=== PATIENT | female | born 1990 | race Two or more races ===

== ENCOUNTER 2023-07-21 14:34 | Observation (INO) | payer MEDICAID, SELFPAY ==
--- NOTE | ~2023-07-21 | US_ITS ---
EXAMINATION: US OB follow up DATE: 07/21/2023 17:06 INDICATION: growth, VICENTE, no care in the [place] . TECHNIQUE: Real-time ultrasound of the pelvis was performed. COMPARISON: None. FINDINGS: There is a single living fetus in vertex presentation. The placenta is posterior. heart rate i s 150 bpm. The amniotic fluid index is 20.7 cm, which is normal (5th to 95th percentile is 9.2 to 23. 1 cm). The following biometric data were obtained: Biparietal diameter (BPD): 7.82 cm; head circumference (HC): 27.02 cm; abdominal circumference (AC): 26.72 cm; femur length (FL): 5.69 cm. These measurements are concordant. Estimated weight is 1570 g +/- 235.57 g, which correlates with the 86.3 percentile when 10/06/19 24 is used as estimated date of delivery. As single measurements, these parameters are each equal to the following estimated gestational ages w ith ranges of +/- 2 standard deviations: BPD: 31 weeks 3 days +/- 3 weeks 1 days. HC: 29 weeks 3 days +/- 2 weeks 0 days. AC: 30 weeks 6 days +/- 3 weeks 0 days. FL: 29 weeks 6 days +/- 2 weeks 1 days. estimated gestational age based solely on measurements from this exam is 30 weeks 3 days +/- 2 weeks 1 days. IMPRESSION: Single living fetus in vertex presentation. GREG by ultrasound 09/26/2023. Normal VICENTE. biometrics detailed above. Reviewed, dictated and finalized at location K.
[2023-07-21 15:11] VITALS: BP 103/58; PULSE 87
[2023-07-21 16:12] LABS: Appearance Urine Clear (Clear); Bacteria Urine None Seen /hpf; Bilirubin Urine Negative (Negative); Blood Urine Negative (Negative); Color Urine Yellow (Yellow); Glucose Urine UA Negative (Negative); Ketones Urine Negative (Negative); Leukocyte Esterase Ur Trace LEU/UL (Negative); Need Manual Microscopic Reviewed; Nitrate Urine Negative (Negative); Non Pathogenic Casts 0-2; Protein Urine Negative (Negative); RBC Urine 0-2 /hpf (0-2); Specific Grav Ur 1.003 (1.001-1.035); Squamous Epithelial Cell Urine Occasional /hpf (Few); Urobilinogen Urine 0.2 mg/dL (<2.0); WBC Urine 0-5 /hpf; pH Urine 7.5 (5.0-9.0)
[2023-07-21 16:46] LABS: Add Urine Microscopic? YES
--- NOTE | 2023-07-21 17:32 | OBADM ---
This patient, Bassem Gold, admitted to the OB room OB Post [facility] for observation. Patient/family oriented to hospital policies and general routines including ID bracelet, bed and alarms, visiting hours, pain management, procedures, bathroom and other care routines, personal items, smoking policy, room service/diet, and visiting hours. Patient/Family are encouraged to report perceived risks to care and to ask questions if they do not understand what they are told or what they should do.
--- NOTE | 2023-07-22 09:29 | P.PNOB_ITS ---
OB - Triage/Final Diagnosis Visit Information Comments/Additional reasons for admission: I have assessed the risk for this patient, Bassem Gold, and determined that she would benefit from observation care. Evaluation Laboratory results: Laboratory Tests 07/21/23 15:32 Urine Color Yellow Urine Appearance Clear Urine pH 7.5 Ur Specific [place] 1.003 Urine Protein Negative Urine Glucose (UA) Negative Urine Ketones Negative Ur Blood (Man) Negative Urine Nitrate Negative Urine Bilirubin Negative Urine Urobilinogen 0.2 Add Ur Microanalysis Reviewed Leukocyte Esterase Rfl Trace H Urine RBC 0-2 Urine WBC 0-5 Ur Squamous Epith Cells Occasional Urine Bacteria None seen Urine Casts 0-2 Vital signs: Vital Signs - 24 hr 07/21/23 15:11 Pulse Rate 87 Blood Pressure 103/58 L Final Diagnosis (1) Abdominal pain affecting : Code(s): O26.899 - Other specified related conditions, unspecified trimester; R10.9 - Unspecified abdominal pain Status: Acute
== END 2023-07-21 17:20 | disposition home or self-care (01) ==
PROVIDERS: Admitting Provider Obstetrics & Gynecology; Visit Provider Obstetrics & Gynecology
DX: O26.893 Other specified pregnancy related conditions, third trimester (principal); R10.9 Unspecified abdominal pain; Z3A.29 29 weeks gestation of pregnancy
CPT/HCPCS: 76816; 81001; G0378; G0379

== ENCOUNTER 2023-09-11 12:30 | Outpatient (RCR) | payer MEDICAID, OTHER, SELFPAY ==
--- NOTE | 2023-08-14 16:39 | OPREHPOC ---
Outpatient Therapy Plan of Care This is a Multidisciplinary Plan of Care that may contain components documented by all disciplines (PT, OT, and ST.) PT Problem 1 PT Problem #1 Knowledge Deficit PT Goal 1 Goal *indep with HEP PT Problem 2 PT Problem #2 Pain PT Goal 1 Goal 1* pt report pain rating of 4/10 at worst 2* no pain reported with palpation over R proximal hip adduction muscle group PT Problem 3 PT Problem #3 Impaired Functional Mobil PT Goal 1 Goal 1* pt ambulate 150' without limping on R LE 2* pt transfer supine/sit without an increase in pain reported 3* increase hip and pelvic strength for good positioning of low back
--- NOTE | 2023-08-14 16:39 | PTOPEVAL1 ---
Assessment and note entered by Kaya Nix, PT Evaluation Information Assessment Status Evaluation Diagnosis sciatica and R side pain Onset 4 weeks ago Subjective Information severe pain with turning in bed, getting up and stepping on R leg; is and due date is October 05 Activity: does not work outside of the home; home tasks increase her pain; is home with and 6 & 1/2 yr old daughter; Reported Pain Level Pain Score Self Report Additional Pain Score Comments pain range in the past week: 4-8/10; most pain anterior R hip pain; also R lateral hip; pops sometimes; increase pain: rolling over in bed, getting up out of bed and stepping onto R leg; first few steps hurt with walking, then get better in hip decrease pain: sit with hip ER; is not taking any medicine; have not used heat or ice Assessment PT Clinical Summary Bassem has the diagnosis of sciatica and R radicular pain. She is 8 months , due October 05. Her is supportive and assist with interpreting with pt. With the evaluation: her pain and tenderness is over hip adductors with spasms at proximal groin area and pain is decreased with sitting hip ER. There is not any tightness of the hip. Skilled PT services are indicated for manual therapy and modalities to decrease pain and spasms therapeutic exercises to strengthen hips and education for home exercises and pain management. Plan of Care Interventions Hot Pack/Cold Pack,Manual Therapy,Neuro Re- education,Patient/Caregiver Education,Therapeutic Activities,Therapeutic Exercise,Self-Care/Home Management PT Services Indicated Yes Treatment Frequency and 1-2 x/wk for 7 total visits Duration These treatments will address the objective and functional deficits as defined above. The patient will be advanced safely and appropriately in order for the dahiana
--- NOTE | 2023-09-18 16:33 | PCPTNOTE ---
pt did not show for today's treatment session.
--- NOTE | 2023-09-22 13:01 | PTOPDC ---
Assessment and note entered by Kaya Nix, PT Discharge Information Assessment Status Discharge - Pt Not Present Diagnosis sciatica and R side pain Onset 4 weeks ago Assessment PT Clinical Summary Mrs. Gold has received 5 PT sessions and she did not show for 2 appointments- 1 treatment and the reevaluation. Talked with her on the phone today and informed him that she would be discharged from PT at this time. The goals were not addressed. Her baby is due in 2 weeks. Discharge PT services. Plan of Care PT Services Indicated No
== END 2023-09-22 13:46 | disposition home or self-care (01) ==
LOC: ANHPT 12:30
PROVIDERS: Visit Provider Obstetrics & Gynecology
DX: M54.31 Sciatica, right side (principal)
CPT/HCPCS: 97110; 97140; 97161; 97530; 99199

== ENCOUNTER 2023-09-27 16:10 | Inpatient (IN) | payer OTHER, SELFPAY ==
[2023-09-27] VITALS (18 sets, daily range): BP systolic 95–134; BP diastolic 49–101; PULSE 70–104; TEMP 36.9–37.1; BMI 33.8
--- NOTE | 2023-09-27 17:04 | LDADM ---
This patient, Bassem Gold, was admitted to Labor/Delivery/Recovery 103 on 09/27/23 at 16:10. Plans for labor, pain management and were discussed with patient. Patient/family oriented to hospital policies and general routines including ID bracelet, bed and alarms, visiting hours, pain management, procedures, bathroom and other care routines, personal items, smoking policy, room service/diet and guest tray routines, security routines, and visiting hours. Patient/Family are encouraged to report perceived risks to care and to ask questions if they do not understand what they are told or what they should do. See OBIX for further documentation.
[2023-09-27 17:06] LABS: Basophils Percent Auto 0.5 % (0.2-1.2); Eosinophils Absolute Auto 0.2 K/mm3 (0-0.3); Eosinophils Percent Auto 2.2 % (0-4.4); Hematocrit 33.3 % (37.0-47.0); Hemoglobin 11.3 g/dL (12.0-15.0); Immature Granulocyte Absolute 0.05 K/mm3 (0.00-0.031); Immature Granulocyte Percent A 0.6 % (0-0.5); Lymphocytes Absolute Auto 1.62 K/mm3 (0.9-3.2); Lymphocytes Percent Auto 19.6 % (18.3-44.2); Mean Corpuscular HGB Conc 33.9 g/dl (32-36); Mean Corpuscular Volume 85.6 fl (80-100); Mean Platelet Volume 9.7 fl (7.4-10.4); Monocytes Absolute Auto 0.5 K/mm3 (0.1-0.6); Monocytes Percent Auto 6.1 % (2.6-8.5); Neutrophils Absolute Auto 5.9 K/mm3 (1.3-6.7); Platelet Count Result 352 k/mm3 (150-375); Red Blood Count 3.89 M/mm3 (4.2-5.4); Red Cell Distribution Width 15.1 % (11.5-14.5); White Blood Count 8.3 K/mm3 (4.5-10.0)
[2023-09-27 18:02] LABS: HIV 1/2 Ab P24 Ag Result Negative (Negative)
[2023-09-27] MEDS: DINOPROSTONE 10 MG VAG INSERT VAGINAL (18:09)
[2023-09-28] VITALS (275 sets, daily range): BP systolic 75–210; BP diastolic 27–192; PULSE 56–171; TEMP 36.6–37.2; O2SAT 97–100
[2023-09-28] MEDS: LACTATED RINGERS 1,000 ML 125 ML IV CONT ×4 (01:22→18:05)
--- NOTE | 2023-09-28 07:14 | WPDANESEPP ---
Anes - Eval Pre Procedure Procedure: labor epidural Date/Time: 09/28/23 07:14 Surgeon: donna Preop Diagnosis: pain during labor Pre Op Diagnosis: IOL Patient Data Age: 32 Gender: F Height: 1.57 m Weight: 84 kg Last Vital Signs Temp 37.1 C 09/28/23 06:49 Pulse 76 09/28/23 07:01 BP 105/47 L 09/28/23 07:01 Pulse Ox 99 09/28/23 07:12 O2 Del Method Room Air 09/27/23 17:04 Allergies Allergy/AdvReac Type Severity Reaction Status Date / Time No Known Allergies Allergy Verified 09/27/23 17:25 Home Medications Medication Instructions Recorded Confirmed Type ferrous sulfate 325 mg (65 mg 325 mg PO DAILY #30 tabs 08/21/23 09/23/23 Rx iron) tablet vits no.126-ferrous fum 1 tablet PO DAILY 30 days #30 tabs 08/21/23 09/23/23 Rx 28 mg iron-folic acid 800 mcg tablet (Classic ) cholecalciferol (vitamin D3) 50 50 mcg PO DAILY 09/12/23 09/23/23 History mcg (2,000 unit) tablet (Vitamin D3) hydrocortisone 2.5 % topical cream 1 applic topical BID PRN itching 09/25/23 09/27/23 Rx #30 grams Laboratory Tests 09/27/23 16:42 WBC 8.3 K/mm3 (4.5-10.0) RBC 3.89 L M/mm3 (4.2-5.4) Hgb 11.3 L g/dL (12.0-15.0) Hct 33.3 L % (37.0-47.0) MCV 85.6 fl (80-100) MCH 29.0 pg (26-34) MCHC 33.9 g/dl (32-36) RDW 15.1 H % (11.5-14.5) Plt Count 352 k/mm3 (150-375) MPV 9.7 fl (7.4-10.4) Immature Gran % (Auto) 0.6 H % (0-0.5) Neut % (Auto) 71.0 % (45.5-73.1) Lymph % (Auto) 19.6 % (18.3-44.2) Drew % (Auto) 6.1 % (2.6-8.5) Eos % (Auto) 2.2 % (0-4.4) Baso % (Auto) 0.5 % (0.2-1.2) Lymph # (Auto) 1.62 K/mm3 (0.9-3.2) Drew # (Auto) 0.5 K/mm3 (0.1-0.6) Eos # (Auto) 0.2 K/mm3 (0-0.3) Baso # (Auto) 0.0 K/mm3 (0.0-0.1) Abs Immat Gran (auto) 0.05 H K/mm3 (0.00-0.031) Absolute Neuts (auto) 5.9 K/mm3 (1.3-6.7) Absolute Nucleated RBC 0.000 K/mm3 (0.0-0.012) Nucleated RBC % 0.0 % (0.0-0.2) RPR Pending HIV 1&2 Ab/P24 Ag 4thGn Negative (Negative) Blood Type O Positive Antibody Screen Negative Patient hx anesthesia problems: none Family hx anesthesia problems: none Results Review: All pre-operative results and documents have been reviewed as part of the pre-operative evaluation. [facility] Past Medical History Medical History (Updated 09/28/23 @ 07:15 by Zoila Carrizales CRNA) Family History Family History (Updated 09/12/23 @ 12:31 by Taryn Iqbal RN) Other No pertinent family history Social History Social History Smoking status: Never smoker Second hand tobacco smoke exposure: No Alcohol intake: never Substance use: never Substance use type: does not use Do You Feel Safe in your Home?: Yes Lack of Transportation: YES Lack of Food: Sometimes True Current Housing: I Do Not Have Housing Concerned About Future Housing: No Difficulty Paying Gas/Electric Bills: No Difficulty Paying for Meds: No Currently Unemployed: No Education: Bachelor's Degree Difficulty w/ Childcare or Family Care: No Living arrangements: other Additional living arrangements comments: Occupation/Education: other 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
--- NOTE | 2023-09-28 07:58 | PM.IMHP ---
H&P: HPI History of Present Illness Date/Time: 09/28/23 07:58 Chief Complaint: induction of labor Narrative: Sunny is a 32yo G2 P 1001 @ 40.1wks who presented overnight for induction of labor, s/p cervidil. She reports good movement. She is feeling contractions. No VB or LOF. Her is complicated by: -- late transfer (31 week) -- R groin pain...PT/tylenol -- elevated 1 hour; 3 hour normal -- anemia; iron daily Review of Systems Constitutional: Constitutional: Denies chills, Denies fever(s) and Denies headache(s) Eyes: Eyes: Denies change in vision ENT: Denies headache(s) Cardiovascular: Cardiovascular: Denies chest pain and Denies dyspnea Respiratory: Respiratory: Denies dyspnea Genitourinary: Genitourinary: Denies abnormal vaginal bleeding and Denies vaginal discharge Neurologic: Denies headache(s) Psychiatric: Psychiatric: Denies anxiety and Denies depression [facility] Past Medical History Medical History Family History Family History (Updated 09/12/23 @ 12:31 by Taryn Iqbal RN) Other No pertinent family history Social History Social History Smoking status: Never smoker Second hand tobacco smoke exposure: No Alcohol intake: never Substance use: never Substance use type: does not use Do You Feel Safe in your Home?: Yes Lack of Transportation: YES Lack of Food: Sometimes True Current Housing: I Do Not Have Housing Concerned About Future Housing: No Difficulty Paying Gas/Electric Bills: No Difficulty Paying for Meds: No Currently Unemployed: No Education: Bachelor's Degree Difficulty w/ Childcare or Family Care: No Living arrangements: other Additional living arrangements comments: Occupation/Education: other 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 Gender identity (if verbalized by the patient): Female Sexual Orientation (if Verbalized by the Patient): Straight or Heterosexual Spiritual care concerns: No Meds Home Medications and Allergies Home Medications Medication Instructions Recorded Confirmed Type ferrous sulfate 325 mg (65 mg 325 mg PO DAILY #30 tabs 08/21/23 09/23/23 Rx iron) tablet vits no.126-ferrous fum 1 tablet PO DAILY 30 days #30 tabs 08/21/23 09/23/23 Rx 28 mg iron-folic acid 800 mcg tablet (Classic ) cholecalciferol (vitamin D3) 50 50 mcg PO DAILY 09/12/23 09/23/23 History mcg (2,000 unit) tablet (Vitamin D3) hydrocortisone 2.5 % topical cream 1 applic topical BID PRN itching 09/25/23 09/27/23 Rx #30 grams Allergies Allergy/AdvReac Type Severity Reaction Status Date / Time No Known Allergies Allergy Verified 09/27/23 17:25 Vital Signs Vital Signs - 24 hr 09/27/23 16:50 09/27/23 17:00 09/27/23 17:15 Temperature Pulse Rate 104 H 95 92 Blood Pressure 119/70 119/67 119/72 Pulse Oximetry Oxygen Delivery 09/27/23 17:30 09/27/23 16:20 09/27/23 18:30 Temperature 98.6 F 98.5 F Pulse Rate 88 Blood Pressure 115/76 Pulse Oximetry Oxygen Delivery 09/27/23 20:26 09/27/23 20:30 09/27/23 21:05 Temperature 98.7 F Pulse Rate 70 93 Blood Pressure 109/50 L 112/49 L Pulse Oximetry Oxygen Delivery 09/27/23 21:07 09/27/23 21:17 09/27/23 21:48 Temperature Pulse Rate 93 91 100 Blood Pressure 114/60 134/101 H 121/72 Pulse Oximetry Oxygen Delivery 09/27/23 22:00 09/27/23 22:15 09/27/23 22:30 Temperature 98.8 F Pulse Rate 91 91 93 Blood Pressure 123/72 121/75 95/52 L Pulse Oximetry Oxygen Delivery 09/27/23 22:45 09/27/23 23:01 09/27/23 23:30 Temperature Pulse Rate 99 103 H 83 Blood Pressure 115/79 104/57 L 123/58 L Pulse Oximetry Oxygen Delivery 09/28/23 00:01 09/28/23 00:31 09/28/23 01:01 Temperature Pulse Rate 79 87 76 Bloo
[2023-09-28] MEDS: OXYTOCIN 30 UNITS/NS 500 ML 30 UNITS/500 ML BAG IV CONT (09:00)
[2023-09-28] MEDS: diphenhydrAMINE HCl CAP 25 MG CAPSULE PO (09:28)
--- NOTE | 2023-09-28 12:08 | PM.OBPNLAB ---
Pain Control Date/time seen: 09/28/23 12:08 Pain control: epidural Pelvic Exam Dilation (cm): 2 Effacement (%): 60 station: -2 Amniotic membrane status: Intact Contractions Monitor mode: External Contraction frequency: 3 Contraction pattern: Regular Status status: Category l Assessment and Plan Pitocin rate (mU/min): 6 Assessment: induction ongoing Comments: Cook balloon with 70cc in each balloon placed Continue pitocin
--- NOTE | 2023-09-28 20:00 | PM.OBPNLAB ---
Pain Control Date/time seen: 09/28/23 20:00 Pain control: epidural Pelvic Exam Dilation (cm): 8 Effacement (%): 80 station: -3 Amniotic membrane status: Ruptured (rut GARCIA 1955) Contractions Monitor mode: External Contraction frequency: 2 Contraction pattern: Regular Status status: Category ll Comments: 2 variables noted after AROM Assessment and Plan Pitocin rate (mU/min): 14 Assessment: active labor Plan: continuous present management
[2023-09-28] MEDS: LIDOCAINE HCL 1% LOCAL INJ 20 ML VIAL (22:30)
[2023-09-28] MEDS: OXYTOCIN 30 UNITS/NS 500 ML 30 UNITS/500 ML BAG 125 UNITS IV CONT (22:54)
--- NOTE | 2023-09-28 23:13 | PM.OBPRVD ---
OB - Vaginal Delivery Note Procedure Delivery date: 09/28/23 Events: Elective Induction of Labor Induction method: Per Cervidil Protocol and Other (Cook Balloon) Delivery augmentation: Rupture of Membranes, Pitocin and Other Delivery monitor: External FHT and External Uterine Route of delivery: Laceration Description: Perineal - 3rd Degree Delivery repair: vicryl Specimen: Yes (placenta) Quantitative Blood Loss (ml): 400 Anesthesia type: Epidural (and 20cc of 1% lidocaine w/o epi) Disposition: Floor Complications: No immediate complications [place] Baby Date of : 09/28/23 Time of : 22:22 Weeks of gestation at delivery: 40 (.1) Infant gender: Female presentation: vertex Placenta delivery description: Expressed Cord Vessel Description: 3 Vessels, True Knot and Delayed Cord Clamping score one minute: 8 score five minutes: 9 Narrative: Nona rapidly progressed to complete dilation and had significant descensus of the fetus. She was in pain as her epidural was not providing adequate anesthesia. Her and her began arguing in their [place] language. He became upset and then started yelling at the staff. Security was notified and present. She was pushing ineffectively on her own, while yelling/screaming. Once I arrived to the room, she was found to be +2 station and I had a conversation with the and he apologized and calmed down. We then educated Nona on the correct way to push. She pushed for three additional contractions and delivered the head over intact perineum. No nuchal cord was noted. She easily delivered the 's shoulders and body without complication. The was immediately placed skin to skin and she had spontaneous cry. The mouth and nose were bulb suction. Delayed cord clamping was performed. The umbilical cord was then doubly clamped and cut. A segment of the cord was collected for cord gases. A true knot was noted. The remaining cord blood was collected for typing. With Pitocin running and gentle downward traction on the cord, the placenta delivered without complications. She was examined and a third degree perineal laceration was noted. The laceration was anesthetized using 20cc of 1% lidocaine w/o epi. The rectal sphincter was reapproximated with multiple 2-0 Vicryl stitches incorporating the surrounding fascia. The remaining laceration was repaired in the normal fashion as a second degree using 2-0 Vicryl. The laceration was approximated well and good hemostasis was noted. Her uterus was found to be firm with minimal bleeding. Sponge, lap, instrument, and needle counts were correct at the of the procedure. Mom and baby were left bonding in the birthing suite in stable condition. She will receive Ancef 2g IV once and be started on stool softeners.
[2023-09-28] MEDS: ceFAZolin 2 GM/D5W 50 ML 2 GM/50 ML BAG IVPB (23:17)
[2023-09-29] VITALS (8 sets, daily range): BP systolic 87–123; BP diastolic 50–76; PULSE 64–84; RESP 16–18; TEMP 36.6–37.4; O2SAT 96–100
[2023-09-29] MEDS: WITCH HAZEL 40 PADS 1 PAD TOPICAL (01:27)
[2023-09-29] MEDS: BENZOCAINE 20% AER SPR (*SP) 56 GM CAN 1 SPRAY TOPICAL (01:27)
[2023-09-29] MEDS: ACETAMINOPHEN 325 MG TABLET 650 MG PO ×3 (02:41→16:52)
[2023-09-29] MEDS: IBUPROFEN 600 MG TABLET PO ×3 (02:41→10:26)
[2023-09-29 05:17] LABS: Hematocrit 29.6 % (37.0-47.0); Hemoglobin 9.8 g/dL (12.0-15.0)
--- NOTE | 2023-09-29 06:46 | PM.OBPNVD ---
OB - PN: Subj Subjective Date/time seen: 09/29/23 06:46 Narrative: PPD#1 Nona reports doing well today. 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 Her pain is controlled. She is tolerating regular diet, voiding, passing gas, and ambulating without issues. She is breast feeding. OB - PN: Obj Data Labs 09/29/23 05:08 Labs: Laboratory Results - last 24 hr 09/29/23 05:08 Hgb 9.8 L Hct 29.6 L OB - PN A/P Assessment and Plan (1) Normal vaginal delivery of second : Code(s): O80 - Encounter for full-term uncomplicated delivery Status: Acute (2) Third degree perineal laceration during delivery: Code(s): O70.20 - Third degree perineal laceration during delivery, unspecified Status: Acute Plan day: 1 Plan: routine care Comments: - PO pain meds - Regular diet - Ambulation and hydration encouraged - Continue putting baby to breast q2-3hr - stool softeners Time Spent With Patient Time: Total time spent is greater than 50% in coordination of care (as documented) at patient's floor/unit and/or counseling patient: Review of Systems Constitutional: Constitutional: Denies chills, Denies fever(s) and Denies headache(s) Eyes: Eyes: Denies change in vision ENT: Denies dizziness and Denies headache(s) Cardiovascular: Cardiovascular: Denies chest pain, Denies palpitations and Denies dyspnea Respiratory: Respiratory: Denies cough and Denies dyspnea Gastrointestinal: Gastrointestinal: Denies nausea and Denies vomiting Neurologic: Denies dizziness and Denies headache(s) Endocrine: Endocrine: Denies palpitations Exam Const: General: cooperative, comfortable and no acute distress Orientation/consciousness: patient oriented x3 Resp: Effort & Inspection: normal respiratory effort Auscultation: clear to auscultation bilaterally Cardio: Rate: regular rate GI: Inspection: non-distended GI Palp: No abdominal tenderness and Yes Soft to palpation Auscultation: normal bowel sounds : Other: fundus firm Skin: General skin exam: normal color Neuro: General: patient oriented x3 Extrem: General: normal to inspection Psych: Appearance: grossly normal Affect: normal affect Attitude: cooperative
[2023-09-29] MEDS: POLYSACCHARIDE IRON COMPLEX 150 MG CAPSULE PO ×2 (10:25→16:53)
[2023-09-29] MEDS: MULTIVIT/MIN/PREN/FOL AC/IRON TABLET 1 TAB PO (10:25)
[2023-09-29] MEDS: DOCUSATE SODIUM 100 MG CAPSULE PO ×2 (10:25→16:53)
--- NOTE | 2023-09-29 11:06 | WPDANLDPN2 ---
Anes-Prog Note L&D Date/Time: 09/29/23 11:06 Comfortable throughout: labor and delivery Neuraxial method: epidural Epidural/Spinal procedure site: tender (pt reports severe pain. Told spouse to continue Tylenol and speak with PCP for further prescriptions) Neuro status: Neuro function grossly intact. Cardiovascular status: normal Respiratory status: normal Airway patency: baseline Mental status: baseline Post-Op hydration status: normal Vital Signs: Last Vital Signs Temp 99.3 F 09/29/23 07:50 Pulse 68 09/29/23 07:50 Resp 16 09/29/23 07:50 BP 105/50 L 09/29/23 07:50 Pulse Ox 100 09/29/23 07:50 O2 Del Method Room Air 09/27/23 17:04 Pain score (VAS): 0/10 I/O: Intake & Output 09/28/23 09/29/23 09/29/23 23:59 07:59 15:59 Intake Total 1000 800 Output Total 400 660 Balance 600 140 Post-procedural complaints: none Patient feedback: Patient satisfied with anesthetic care.
--- NOTE | 2023-09-29 11:45 | PCCCNOTE ---
Per Care Coordination. Patient referred to CC for homeless and possible resources. American is not their primary language, but dad is fluent American as well. Met with FOB at bedside. Mother was talking through bathroom and getting ready for shower. Pt. and FOB live with a friend. They deny homelessness. Pt. does not have SSN, so not able to get benefits per FOB. He reports able to use his insurance to get rides for appointments. They also utilize the bus or delivery services. FOB reports having all necessary baby car items like carseat and bassinet. He will see with financial counselor if baby can get WIC services. Provided them with a basket of baby care items as well. Hospital will send them home with some formula too and father reports they will also buy formula, but mother is also breast feeding. No further needs identified.
--- NOTE | 2023-09-29 12:40 | PC.NURSE ---
[id number] Introductions were made, then consulted with patient to assess needs related to and father of baby assists with interpreting at times. Stratus for interpretation was declined by mother. Mother was concerned about her flat nipples, however; she demonstrated latching her independently. Encouraged understanding of the benefits of skin to skin (demonstrating unwrapping infant and placing upright on her chest), stimulating with massage touch, changing positions to encourage wakefulness, how to watch for early feeding cues, responsive feeding, feeding on demand (aiming for 8-12 times in 24 hours, about every 2-3 hours), milk production, building/maintaining a milk supply, duration of feeding, signs of adequate intake/output and how to record on the feeding sheet. Mother works well with her . Reviewed positioning and ear, shoulder, hip alignment, supporting the breast to facilitate a deep latch, asymmetrical latch (off-center), leading with the chin with a big, open, wide gape and body close to mother. Infant latched optimally to the right breast in cross cradle position. Education given to the mother of how to visualize the suckling (with good rocking jaw motion), swallows (dropping of the lower jaw) and how to listen for drinking at the breast (the ka sound). was able to maintain latch without pain to mother protecting the nipple with optimal positioning and latching. Reviewed comfort measures of healing with a warm, wet washcloth to rinse breast, then leave open to air-dry, good handwashing when or touching the breast/nipples to prevent infection. Infant self detached with hands relaxed and no misshaping of mother's nipple. She rates her nipple tenderness a 3 on 0-10 pain scale. Mother voiced understanding of skin to skin, stimulating with massage touch, responsive feedings, talking to to encourage if it has been 2 -2.5 hours since the start of the last , to call if infant does not latch, or if there is discomfort with . Resources used for education were facilitated with the visual educational handouts/ tool/mom and baby guide. Inpatient/outpatient resources provided with feeding sheet, name written on the communication board, and the mom/baby guide. Parents voiced understanding of information, demonstrated learning and will call if there is a request for assistance.
[2023-09-29 14:35] LABS: Rapid Plasma Reagin Non-Reactive (NonReactive)
--- NOTE | 2023-09-30 06:36 | PM.OBDSVD ---
DS: Admitting Diagnosis Discharge Date 09/30/23 Admitting Diagnosis Induction of labor DS: Discharge Diagnosis Discharge Diagnosis (1) Normal vaginal delivery of second : Code(s): O80 - Encounter for full-term uncomplicated delivery Status: Acute (2) Third degree perineal laceration during delivery: Code(s): O70.20 - Third degree perineal laceration during delivery, unspecified Status: Acute OB - DS: Summary OB Procedures : Ultrasound OB Procedures Intrapartum: Spontaneous Vag Delivery OB Procedures: : None Peripartum Data Infant Delivery Method: Natural Vaginal Laceration Description: Perineal - 3rd Degree complications: none 1: Gender: Female Disposition of : home Status at Discharge Functional status at discharge: independent ambulation Overall status at discharge: patient is back to baseline Time Spent with Patient Time attestation: Total time spent providing and/or coordinating discharge services: Exam Const: General: cooperative, comfortable and no acute distress Orientation/consciousness: patient oriented x3 Resp: Effort & Inspection: normal respiratory effort Auscultation: clear to auscultation bilaterally Cardio: Rate: regular rate GI: Inspection: non-distended GI Palp: No abdominal tenderness and Yes Soft to palpation Auscultation: normal bowel sounds : Other: fundus firm Skin: General skin exam: normal color Neuro: General: patient oriented x3 Extrem: General: normal to inspection Psych: Appearance: grossly normal Affect: normal affect Attitude: cooperative DS: Data Data Completed and Pending Pending studies at discharge: Pending at discharge 09/28/23 22:27 Surgical [PTH] Routine Labs on day of discharge: Labs from last 24 hours 09/27/23 16:42 RPR Non-reactive Discharge Plan Discharge Attending physician on discharge: Mi Rico Discharging Clinician: Mi Rioc Anticipated Discharge Date/Time: 09/30/23 14:00 Patient Disposition: Home, Self-Care Activity: may shower and pelvic rest Diet: regular Patient Instructions: Perineal Tear with Delivery (DC), Vaginal Delivery (DC) Stand Alone Forms: General Discharge Information Follow-up/Referrals: Mi Rico MD [Physician] - 4 Weeks Discharge Medications: New acetaminophen 325 mg Tablet 650 mg PO Q6H PRN (Reason: Mild Pain (1-3) Or Headache) Qty: 60 0RF docusate sodium 100 mg Capsule 100 mg PO BID Qty: 120 0RF ibuprofen 600 mg Tablet 600 mg PO Q6H PRN (Reason: Cramping) Qty: 40 0RF Continued ferrous sulfate 325 mg (65 mg iron) tablet 325 mg PO DAILY Qty: 30 1RF Classic 28 mg iron- 800 mcg tablet 1 tablet PO DAILY 30 Days Qty: 30 3RF cholecalciferol (vitamin D3) [Vitamin D3] 50 mcg (2,000 unit) Tablet 50 mcg PO DAILY hydrocortisone 2.5 % cream 1 applic topical BID PRN (Reason: itching) Qty: 30 2RF Date of admission: 09/27/23 16:10 Primary Care Provider: UNKNOWN,DOCTOR Admitting Provider: Mi Rico Attending physician on admission: Mi Rico Condition: Stable
[2023-09-30 09:20] VITALS: BP 117/68; PULSE 82; RESP 16; TEMP 37.2; O2SAT 98
--- NOTE | 2023-09-30 09:40 | PC.NURSE ---
[id number] Upon entering the room mother is independently latching her to the breast using the scissor hold and cradling infant. Mother's face winces with pain and upon assess the infant is moving the breast in and out of the mouth. Demonstrated with guidance bringing to the breast using cross cradle positioning with a deep latch. Mother voiced more comfort with a closer deeper latch. Father of baby will bottle feed as that has been the practice as mother believes she doesn't have enough milk for her . Discussed protecting her milk supply and nipples with frequent effective . Reinforced understanding of milk production, transition of milk, signs of adequate intake, transition of stool, prevention/relief of engorgement, plugged ducts, mastitis, responsive watching for feeding cues, the different methods of stimulating to breastfeed 1-3 hours after the start of the last feeding, community resources, and when to call a provider using the resource of the feeding sheet along with the mom and baby guide. Parents voiced understanding of the information shared, is confident to continue feeding their infant at home.
--- NOTE | 2023-09-30 09:45 | PC.NURSE ---
Reviewed the [facility] [employer] insurance pump [id number] using the guide that came with the pump. Discussed how and who to contact for concerns or questions. Reminded parents that there's to be no pain on her nipples or breast.
[2023-09-30] MEDS: IBUPROFEN 600 MG TABLET PO (10:01)
[2023-09-30] MEDS: POLYSACCHARIDE IRON COMPLEX 150 MG CAPSULE PO (10:03)
[2023-09-30] MEDS: MULTIVIT/MIN/PREN/FOL AC/IRON TABLET 1 TAB PO (10:03)
[2023-09-30] MEDS: DOCUSATE SODIUM 100 MG CAPSULE PO (10:04)
[2023-09-30] MEDS: ACETAMINOPHEN 325 MG TABLET 650 MG PO (15:34)
--- NOTE | 2023-09-30 18:18 | PC.NURSE ---
1000 Pt prefers for FOB to do the translating. She understands some [place] but FOB translates the rest.
[2023-10-01 11:29] VITALS: BP 119/72; PULSE 87; RESP 18; TEMP 36.6; O2SAT 100
== END 2023-09-30 15:40 | disposition home or self-care (01) | DRG 542 ==
LOC: ANHLDR 16:26 → ANHOB2 09-29 01:53
PROVIDERS: Admitting Provider Obstetrics & Gynecology; Visit Provider Obstetrics & Gynecology
DX: O69.2XX0 Labor and delivery complicated by other cord entanglement, with compression, not applicable or unspecified (principal); O99.02 Anemia complicating childbirth; D64.9 Anemia, unspecified; O70.20 Third degree perineal laceration during delivery, unspecified; Z3A.40 40 weeks gestation of pregnancy; Z37.0 Single live birth
CPT/HCPCS: 36415; 85014; 85018; 85025; 86592; 86703; 86850; 86900; 86901; 88307; A9270; G0432; J0690; J2590; J2795; J7120